=== PATIENT | female | born 1965 | race Caucasian/White ===

== ENCOUNTER 2024-07-11 15:52 | Inpatient (IN) | payer MEDICAID, OTHER ==
[~2024-07-11] VITALS: Ht 162.6 cm; Wt 81.8 kg
[2024-07-11 16:44] LABS: HEMATOCRIT 41.8 % (36.0-47.0); MEAN CORPUSCULAR HEMOGLOBIN 29.4 pg (27.0-33.0); MEAN CORPUSCULAR HGB CONC 33.5 g/dl (32.0-36.5); MEAN CORPUSCULAR VOLUME 87.8 fl (80.0-96.0); PLATELET COUNT, AUTOMATED 306 10^3/uL (150-450); RED BLOOD COUNT 4.76 10^6/uL (4.00-5.40); WHITE BLOOD COUNT 6.1 10^3/uL (4.0-10.0)
[2024-07-11 17:04] LABS: AMPHETAMINES LEVEL URINE NEGATIVE (NEGATIVE); BARBITURATES URINE NEGATIVE (NEGATIVE); BENZODIAZEPINES URINE NEGATIVE (NEGATIVE); CANNABINOIDS URINE NEGATIVE (NEGATIVE); COCAINE METABOLITE URINE NEGATIVE (NEGATIVE); METHADONE URINE NEGATIVE (NEGATIVE); OPIATES URINE NEGATIVE (NEGATIVE); PHENCYCLIDINE URINE NEGATIVE (NEGATIVE)
[2024-07-11 17:06] LABS: ETHYL ALCOHOL (ETHANOL) < 0.003 % (0.000-0.010)
[2024-07-11 17:07] LABS: HCG, SERUM QUALITATIVE NEGATIVE (NEGATIVE); SALICYLATE LEVEL < 3.0 MG/DL (<30)
[2024-07-11 17:08] LABS: ALBUMIN 3.9 G/DL (3.2-5.2); ALKALINE PHOSPHATASE 81 U/L (35-104); ALT/SGPT 47 U/L (7.0-40); AST/SGOT 43 U/L (<34); BILIRUBIN,DIRECT 0.2 MG/DL (<0.4); BILIRUBIN,TOTAL 0.6 MG/DL (0.3-1.2); BLOOD UREA NITROGEN 10 MG/DL (9-23); CALCIUM LEVEL 10.4 MG/DL (8.5-10.1); CARBON DIOXIDE LEVEL 26 MMOL/L (20-31); CHLORIDE LEVEL 103 MMOL/L (98-107); CREATININE FOR GFR 0.67 MG/DL (0.55-1.30); GLOMERULAR FILTRATION RATE > 60.0 (>51); GLUCOSE, FASTING 84 MG/DL (60-100); POTASSIUM SERUM 3.9 MMOL/L (3.5-5.1); SODIUM LEVEL 140 MMOL/L (136-145); TOTAL PROTEIN 7.7 G/DL (5.7-8.2)
[2024-07-11 17:10] LABS: THYROID STIMULATING HORMONE 1.447 uIU/ML (0.55-4.78)
[2024-07-11] MEDS ORDERED: CEPH500C PO (17:12)
[2024-07-11] MEDS ORDERED: POTA-298 PO (17:12)
[2024-07-11] MEDS ORDERED: LEVE250T5 PO (17:12)
[2024-07-11 17:24] LABS: APPEARANCE, URINE HAZY (CLEAR); BACTERIA, URINE AUTO NEGATIVE (NEGATIVE); BILIRUBIN, URINE AUTO NEGATIVE (NEGATIVE); BLOOD, URINE BLOOD 1+ (NEGATIVE); COLOR, URINE YELLOW (YELLOW); GLUCOSE, URINE (UA) AUTO NEGATIVE (NEGATIVE); KETONE, URINE AUTO 1+ mg/dL (NEGATIVE); LEUKOCYTE ESTERASE, URINE AUTO 2+ (NEGATIVE); MUCUS, URINE SMALL (NEGATIVE); NITRITE, URINE AUTO NEGATIVE (NEGATIVE); PROTEIN, URINE AUTO NEGATIVE (NEGATIVE); RBC, URINE AUTO 3 /HPF (0-3); SPECIFIC GRAVITY URINE AUTO 1.014 (1.002-1.035); SQUAMOUS EPITHELIAL CELL UR AU 4 /HPF (0-6); WBC, URINE AUTO 9 /HPF (0-3)
[2024-07-11] MEDS: LORazepam 1 MG TAB PO STA (18:02)
[2024-07-11] MEDS ORDERED: MOM 30ML SUSPENSION UDC PO PRN (18:55)
[2024-07-11] MEDS ORDERED: HOME MED LIST COMPLETE! XX SCH (18:55)
[2024-07-11] MEDS ORDERED: MAALOX 30 ML SUSP *UDC PO PRN (18:55)
[2024-07-11] MEDS: levETIRAcetam 250MG TABLET (KEPPRA) PO SCH (21:22)
[2024-07-11] MEDS: traZODone 50 MG TAB PO PRN (23:59)
[2024-07-12] MEDS: IBUPROFEN 400MG TAB PO PRN
[2024-07-12 06:28] VITALS: BP 125/74; TEMP 97.6; O2SAT 100
[2024-07-12] MEDS: NICOTINE 14 MG/24 HR TRANSDERMAL TD SCH (09:33)
[2024-07-12 10:43] LABS: TOTAL 25(OH) VITAMIN D 15.2 NG/ML (20.0-100.0)
[2024-07-12] MEDS ORDERED: LORazepam 2 MG TAB PO PRN (11:45)
[2024-07-12] MEDS: THIAMINE 100 MG TAB PO SCH (15:24)
[2024-07-12] MEDS: MULTIVITAMINS/MINERALS THERAP 1 TAB PO SCH (15:25)
[2024-07-12 15:29] VITALS: BP 135/89
[2024-07-12] MEDS: FOLIC ACID 1MG TAB PO SCH (15:29)
[2024-07-12 17:36] VITALS: BP 135/89; TEMP 98.3; O2SAT 100
[2024-07-13] VITALS (7 sets, daily range): BP systolic 110–130; BP diastolic 61–85; TEMP 96.5–97.9; O2SAT 98–99
[2024-07-13] MEDS: VITAMIN D 50,000 UNITS CAPSULE (ERGOCALCIFEROL 1.25MG) PO SCH (08:09)
[2024-07-13] MEDS: ACETAMINOPHEN 325 MG TAB PO PRN (12:51)
[2024-07-14 06:30] VITALS: BP 133/92; TEMP 97.2; O2SAT 100
[2024-07-14 07:23] VITALS: BP 133/92
[2024-07-14] MEDS: BACITRACIN OINTMENT 30GM TUBE TOP SCH (12:52)
[2024-07-14 15:23] VITALS: BP 135/84
[2024-07-14] MEDS: OLANZapine 5 MG TAB PO PRN (15:29)
[2024-07-14 16:09] VITALS: BP 135/84; TEMP 98.7; O2SAT 100
[2024-07-14] MEDS: LORazepam 1 MG TAB PO ONE (16:59)
[2024-07-14] MEDS: OLANZapine 2.5MG TABLET PO SCH (20:37)
[2024-07-15 06:43] VITALS: BP 114/65; TEMP 98.2; O2SAT 100
[2024-07-15 14:39] VITALS: BP 133/73
[2024-07-15 15:03] VITALS: BP 133/73; TEMP 98.1; O2SAT 99
[2024-07-15] MEDS: LORazepam 0.5 MG TAB PO ONE (17:05)
[2024-07-15 22:17] VITALS: BP 126/75
[2024-07-16 06:00] VITALS: BP 143/84; TEMP 97.6; O2SAT 99
[2024-07-16] MEDS: LORazepam 0.5 MG TAB PO SCH (09:15)
[2024-07-16 15:45] VITALS: BP 119/60; TEMP 97.9; O2SAT 99
[2024-07-17 06:50] VITALS: BP 118/64; TEMP 97.8; O2SAT 100
[2024-07-17 15:53] LABS: VITAMIN B6,PYRIDOXAL PHOSPHATE 5.1 ng/mL (2.1-21.7)
[2024-07-17 16:29] VITALS: BP 117/65; TEMP 97.7; O2SAT 99
[2024-07-18 06:33] VITALS: BP 88/52; TEMP 97.3; O2SAT 99
[2024-07-18 19:08] VITALS: BP 132/81; TEMP 97.2; O2SAT 100
[2024-07-19 06:32] VITALS: BP 133/74; TEMP 97.8; O2SAT 98
[2024-07-19 14:38] VITALS: BP 127/79; TEMP 96.9; O2SAT 100
[2024-07-19] MEDS: OLANZapine 2.5MG TABLET PO SCH (15:41)
[2024-07-20 06:30] VITALS: BP 127/79; TEMP 96.9; O2SAT 100
[2024-07-20 16:29] VITALS: BP 138/84; TEMP 96.5; O2SAT 97
[2024-07-21 06:41] VITALS: BP 133/83; TEMP 97.2; O2SAT 100
[2024-07-21] MEDS: diphenhydrAMINE 25MG CAP PO PRN (07:36)
[2024-07-21 15:24] VITALS: BP 145/79; TEMP 97.6; O2SAT 98
[2024-07-22 06:41] VITALS: BP 131/75; TEMP 97.9; O2SAT 99
[2024-07-22] MEDS ORDERED: Multivitamins PO (10:44)
[2024-07-22] MEDS ORDERED: FOLI1TAB11 PO (10:44)
[2024-07-22] MEDS ORDERED: BACI50OI TOP (10:44)
[2024-07-22] MEDS ORDERED: LORazepam PO (10:44)
[2024-07-22] MEDS ORDERED: OLAN2.5T53 PO (10:44)
[2024-07-22] MEDS ORDERED: ERGO500029 PO (10:44)
== END 2024-07-22 16:05 | disposition home or self-care (01) | DRG 751 ==
LOC: M ED 15:52 → M ED INP 18:52 → M PSY 21:43
PROVIDERS: ADMIT Psychiatry & Neurology Neurology; ATTEND Psychiatry & Neurology Psychiatry
DX: F29 Unspecified psychosis not due to a substance or known physiological condition (principal); F17.200 Nicotine dependence, unspecified, uncomplicated; R45.851 Suicidal ideations; G43.909 Migraine, unspecified, not intractable, without status migrainosus; E55.9 Vitamin D deficiency, unspecified; Z81.8 Family history of other mental and behavioral disorders; Z79.899 Other long term (current) drug therapy

== ENCOUNTER 2024-07-25 16:51 | Emergency (ER) | payer OTHER ==
[~2024-07-25] VITALS: Ht 167.6 cm; Wt 90.0 kg
[~2024-07-25 16:51] MED LIST: BACI50OI TOP; CEPH500C PO; ERGO500029 PO; FOLI1TAB11 PO; LEVE250T5 PO; LORazepam PO; Multivitamins PO; OLAN2.5T53 PO; POTA-298 PO
[2024-07-25 17:33] LABS: HEMATOCRIT 41.9 % (36.0-47.0); HEMOGLOBIN 13.6 g/dl (12.0-15.5); MEAN CORPUSCULAR HEMOGLOBIN 29.4 pg (27.0-33.0); MEAN CORPUSCULAR HGB CONC 32.5 g/dl (32.0-36.5); MEAN CORPUSCULAR VOLUME 90.5 fl (80.0-96.0); PLATELET COUNT, AUTOMATED 320 10^3/uL (150-450); RED BLOOD COUNT 4.63 10^6/uL (4.00-5.40); WHITE BLOOD COUNT 8.1 10^3/uL (4.0-10.0)
[2024-07-25 18:02] LABS: ETHYL ALCOHOL (ETHANOL) 0.006 % (0.000-0.010)
[2024-07-25 18:04] LABS: SALICYLATE LEVEL < 3.0 MG/DL (<30)
[2024-07-25 18:05] LABS: ALBUMIN 3.7 G/DL (3.2-5.2); ALKALINE PHOSPHATASE 219 U/L (35-104); ALT/SGPT 287 U/L (7.0-40); AST/SGOT 94 U/L (<34); BILIRUBIN,DIRECT < 0.1 MG/DL (<0.4); BILIRUBIN,TOTAL 0.4 MG/DL (0.3-1.2); BLOOD UREA NITROGEN 16 MG/DL (9-23); CALCIUM LEVEL 10.4 MG/DL (8.5-10.1); CARBON DIOXIDE LEVEL 31 MMOL/L (20-31); CHLORIDE LEVEL 105 MMOL/L (98-107); CREATININE FOR GFR 0.55 MG/DL (0.55-1.30); GLOMERULAR FILTRATION RATE > 60.0 (>51); GLUCOSE, FASTING 71 MG/DL (60-100); POTASSIUM SERUM 4.1 MMOL/L (3.5-5.1); SODIUM LEVEL 142 MMOL/L (136-145); TOTAL PROTEIN 7.6 G/DL (5.7-8.2)
[2024-07-25 18:19] LABS: AMPHETAMINES LEVEL URINE NEGATIVE (NEGATIVE); BARBITURATES URINE NEGATIVE (NEGATIVE); BENZODIAZEPINES URINE NEGATIVE (NEGATIVE); CANNABINOIDS URINE NEGATIVE (NEGATIVE); COCAINE METABOLITE URINE NEGATIVE (NEGATIVE); METHADONE URINE NEGATIVE (NEGATIVE); OPIATES URINE NEGATIVE (NEGATIVE); PHENCYCLIDINE URINE NEGATIVE (NEGATIVE)
[2024-07-25] MEDS ORDERED: BACI500O8 TOP (18:35)
[2024-07-25] MEDS ORDERED: HOME MED LIST COMPLETE! XX SCH (18:40)
[2024-07-25 21:30] VITALS: BP 140/76; TEMP 97.1; O2SAT 99
== END 2024-07-25 21:33 | disposition home or self-care (01) ==
LOC: M ED 16:51
DX: F43.0 Acute stress reaction (principal); F41.9 Anxiety disorder, unspecified; E78.5 Hyperlipidemia, unspecified; F32.A Depression, unspecified; F43.10 Post-traumatic stress disorder, unspecified; G40.909 Epilepsy, unspecified, not intractable, without status epilepticus; Z79.2 Long term (current) use of antibiotics; Z79.899 Other long term (current) drug therapy

== ENCOUNTER 2024-08-14 17:35 | Emergency (ER) | payer OTHER ==
[~2024-08-14] VITALS: Ht 162.6 cm; Wt 90.0 kg
[~2024-08-14 17:35] MED LIST changes: +BACI500O8 TOP
[2024-08-15] MEDS ORDERED: HOME MED LIST COMPLETE! XX SCH (02:00)
[2024-08-15] MEDS: ACETAMINOPHEN 325 MG TAB PO PRN (05:48)
[2024-08-15] MEDS: levETIRAcetam 250MG TABLET (KEPPRA) PO SCH (08:55)
[2024-08-15] MEDS: BACITRACIN OINTMENT 30GM TUBE TOP SCH (09:05)
[2024-08-15 11:18] LABS: HEMATOCRIT 38.7 % (36.0-47.0); HEMOGLOBIN 12.7 g/dl (12.0-15.5); MEAN CORPUSCULAR HEMOGLOBIN 28.9 pg (27.0-33.0); MEAN CORPUSCULAR HGB CONC 32.8 g/dl (32.0-36.5); PLATELET COUNT, AUTOMATED 273 10^3/uL (150-450); WHITE BLOOD COUNT 6.2 10^3/uL (4.0-10.0)
[2024-08-15 12:03] LABS: BLOOD UREA NITROGEN 12 MG/DL (9-23); CALCIUM LEVEL 9.3 MG/DL (8.5-10.1); CARBON DIOXIDE LEVEL 27 MMOL/L (20-31); CHLORIDE LEVEL 107 MMOL/L (98-107); CREATININE FOR GFR 0.59 MG/DL (0.55-1.30); GLOMERULAR FILTRATION RATE > 60.0 (>51); GLUCOSE, FASTING 99 MG/DL (60-100); POTASSIUM SERUM 4.4 MMOL/L (3.5-5.1); SODIUM LEVEL 140 MMOL/L (136-145)
[2024-08-15] MEDS ORDERED: ISOVUE-370 76% 100ML VIAL As Ordered ONE (16:55)
[2024-08-16] MEDS: diphenhydrAMINE 25MG CAP PO ONE (04:06)
[2024-08-16 07:37] VITALS: BP 118/83; TEMP 97.7; O2SAT 99
== END 2024-08-16 12:13 | disposition home or self-care (01) ==
LOC: EDBD 17:35 → M ED 17:35
DX: Z60.8 Other problems related to social environment (principal); F41.9 Anxiety disorder, unspecified; F32.A Depression, unspecified; G40.909 Epilepsy, unspecified, not intractable, without status epilepticus; F17.210 Nicotine dependence, cigarettes, uncomplicated; Z88.8 Allergy status to other drugs, medicaments and biological substances; Z79.2 Long term (current) use of antibiotics; Z79.899 Other long term (current) drug therapy
CPT/HCPCS: 36415; 74170; 80048; 85027; 99284; Q9967

== ENCOUNTER 2024-09-16 07:43 | Inpatient (IN) | payer OTHER ==
[~2024-09-16] VITALS: Ht 162.6 cm; Wt 80.0 kg
[2024-09-16] MEDS ORDERED: HOME MED LIST COMPLETE! XX SCH (14:00)
[2024-09-16] MEDS ORDERED: MOM 30ML SUSPENSION UDC PO PRN (16:40)
[2024-09-16] MEDS ORDERED: IBUPROFEN 400MG TAB PO PRN (16:40)
[2024-09-16] MEDS ORDERED: ACETAMINOPHEN 325 MG TAB PO PRN (16:40)
[2024-09-16] MEDS: traZODone 50 MG TAB PO PRN (20:14)
[2024-09-16] MEDS: levETIRAcetam 250MG TABLET (KEPPRA) PO SCH (20:14)
[2024-09-17 06:37] VITALS: BP 121/66; TEMP 97.8
[2024-09-17] MEDS ORDERED: levETIRAcetam 250MG TABLET (KEPPRA) PO SCH (09:00)
[2024-09-17 10:22] VITALS: O2SAT 99
[2024-09-17] MEDS: MUPIROCIN 2% OINT 22 GM TUBE TOP SCH (11:28)
[2024-09-17 15:40] VITALS: BP 116/73; TEMP 98.2; O2SAT 99
[2024-09-18 06:45] VITALS: BP 119/74; TEMP 96.5; O2SAT 98
[2024-09-18 15:28] VITALS: BP 114/68; TEMP 97.5; O2SAT 98
[2024-09-19] MEDS: MAALOX 30 ML SUSP *UDC PO PRN (04:44)
[2024-09-19 06:38] VITALS: BP 122/64; TEMP 97.8; O2SAT 99
[2024-09-19] MEDS: NICOTINE 21MG/24HR 1 EA TRANSDERMAL TD SCH (09:28)
[2024-09-19 16:00] VITALS: BP 121/77; TEMP 97.7; O2SAT 100
[2024-09-19] MEDS: SERTRALINE HCL 25 MG TABLET PO SCH (17:10)
[2024-09-20 06:46] VITALS: BP 133/61; TEMP 97.4; O2SAT 100
[2024-09-20 15:27] VITALS: BP 148/82; TEMP 97.7; O2SAT 97
[2024-09-21 06:33] VITALS: BP 140/80; TEMP 97; O2SAT 99
[2024-09-21] MEDS: OLANZapine ORAL DISINTEGRATING TAB 5MG PO PRN (06:46)
[2024-09-21] MEDS: SERTRALINE HCL 50 MG TAB PO SCH (08:44)
[2024-09-21 16:49] VITALS: BP 105/54; TEMP 97.9; O2SAT 99
[2024-09-22 06:15] VITALS: BP 144/78; TEMP 97.6; O2SAT 18
[2024-09-22 15:33] VITALS: BP 133/88; TEMP 97.5; O2SAT 98
[2024-09-23 06:38] VITALS: BP 142/72; TEMP 97; O2SAT 98
[2024-09-23] MEDS ORDERED: NICO21PAT TD (09:28)
[2024-09-23] MEDS ORDERED: TRAZ-252 PO (09:28)
[2024-09-23] MEDS ORDERED: HYDR-3363 PO (09:28)
[2024-09-23] MEDS ORDERED: LEVE250T5 PO (09:28)
[2024-09-23] MEDS ORDERED: SERT50TA29 PO (09:28)
[2024-09-23] MEDS ORDERED: ZYPR5TAB31 PO (10:00)
== END 2024-09-23 13:43 | disposition home or self-care (01) | DRG 754 ==
LOC: M ED 07:43 → M ED INP 15:29 → M PSY 16:16
PROVIDERS: ADMIT Psychiatry & Neurology Psychiatry; ATTEND Psychiatry & Neurology Psychiatry
DX: F32.A Depression, unspecified (principal); G40.909 Epilepsy, unspecified, not intractable, without status epilepticus; E55.9 Vitamin D deficiency, unspecified; F17.210 Nicotine dependence, cigarettes, uncomplicated; F41.9 Anxiety disorder, unspecified; F10.20 Alcohol dependence, uncomplicated; Z56.0 Unemployment, unspecified; Z79.899 Other long term (current) drug therapy; Z88.8 Allergy status to other drugs, medicaments and biological substances

== ENCOUNTER 2024-10-05 15:55 | Emergency (ER) | payer MEDICAID, OTHER ==
[~2024-10-05] VITALS: Ht 162.6 cm; Wt 80.0 kg
[~2024-10-05 15:55] MED LIST changes: +HYDR-3363 PO; +NICO21PAT TD; +SERT50TA29 PO; +TRAZ-252 PO; +ZYPR5TAB31 PO
[2024-10-05] MEDS ORDERED: HYDR-3363 PO (17:17)
[2024-10-05] MEDS ORDERED: TRAZ1TAB10 PO (17:17)
[2024-10-05] MEDS ORDERED: SERT50TA29 PO (17:17)
[2024-10-05] MEDS ORDERED: OLAN5ZYD PO (17:17)
[2024-10-05] MEDS ORDERED: HOME MED LIST COMPLETE! XX SCH (17:20)
[2024-10-05] MEDS ORDERED: traZODone 50 MG TAB PO PRN (18:10)
[2024-10-05] MEDS ORDERED: OLANZapine ORAL DISINTEGRATING TAB 5MG PO PRN (18:10)
[2024-10-05] MEDS: levETIRAcetam 250MG TABLET (KEPPRA) PO SCH (21:10)
[2024-10-06] MEDS: SERTRALINE HCL 50 MG TAB PO SCH (08:59)
[2024-10-06 09:46] VITALS: BP 127/84; TEMP 98.6; O2SAT 97
== END 2024-10-06 12:34 | disposition home or self-care (01) ==
LOC: M ED 15:55
DX: F60.3 Borderline personality disorder (principal); G40.909 Epilepsy, unspecified, not intractable, without status epilepticus; F43.10 Post-traumatic stress disorder, unspecified; F17.210 Nicotine dependence, cigarettes, uncomplicated; F10.10 Alcohol abuse, uncomplicated; F19.10 Other psychoactive substance abuse, uncomplicated; Z88.8 Allergy status to other drugs, medicaments and biological substances; Z79.899 Other long term (current) drug therapy

== ENCOUNTER 2024-10-21 19:17 | Inpatient (IN) | payer OTHER ==
[~2024-10-21] VITALS: Ht 162.6 cm; Wt 93.7 kg
[~2024-10-21 19:17] MED LIST changes: +OLAN5ZYD PO; +TRAZ1TAB10 PO
[2024-10-21 20:11] LABS: HEMATOCRIT 36.9 % (36.0-47.0); HEMOGLOBIN 12.5 g/dl (12.0-15.5); MEAN CORPUSCULAR HEMOGLOBIN 28.7 pg (27.0-33.0); MEAN CORPUSCULAR HGB CONC 33.9 g/dl (32.0-36.5); MEAN CORPUSCULAR VOLUME 84.8 fl (80.0-96.0); PLATELET COUNT, AUTOMATED 313 10^3/uL (150-450); RED BLOOD COUNT 4.35 10^6/uL (4.00-5.40); WHITE BLOOD COUNT 9.4 10^3/uL (4.0-10.0)
[2024-10-21 20:33] LABS: ETHYL ALCOHOL (ETHANOL) < 0.003 % (0.000-0.010)
[2024-10-21 20:34] LABS: SALICYLATE LEVEL < 3.0 MG/DL (<30)
[2024-10-21 20:35] LABS: ALBUMIN 3.2 G/DL (3.2-5.2); ALKALINE PHOSPHATASE 96 U/L (35-104); ALT/SGPT 48 U/L (7.0-40); AST/SGOT 28 U/L (<34); BILIRUBIN,DIRECT < 0.1 MG/DL (<0.4); BILIRUBIN,TOTAL 0.2 MG/DL (0.3-1.2); BLOOD UREA NITROGEN 13 MG/DL (9-23); CALCIUM LEVEL 9.4 MG/DL (8.5-10.1); CARBON DIOXIDE LEVEL 28 MMOL/L (20-31); CHLORIDE LEVEL 100 MMOL/L (98-107); CREATININE FOR GFR 0.73 MG/DL (0.55-1.30); GLOMERULAR FILTRATION RATE > 60.0 (>51); GLUCOSE, FASTING 83 MG/DL (60-100); HCG, SERUM QUALITATIVE NEGATIVE (NEGATIVE); POTASSIUM SERUM 4.1 MMOL/L (3.5-5.1); SODIUM LEVEL 136 MMOL/L (136-145); THYROID STIMULATING HORMONE 1.731 uIU/ML (0.55-4.78); TOTAL PROTEIN 6.8 G/DL (5.7-8.2)
[2024-10-21] MEDS ORDERED: MIRT-10 PO (20:47)
[2024-10-21] MEDS ORDERED: QUET50TA4 PO (20:47)
[2024-10-21] MEDS ORDERED: HYDR50TA70 PO (20:47)
[2024-10-21] MEDS ORDERED: HOME MED LIST COMPLETE! XX SCH (20:50)
[2024-10-21 22:11] LABS: KETONE, URINE AUTO RFX NEGATIVE (NEGATIVE); LEUKOCYTE ESTERASE UR AUTO RFX 3+ (NEGATIVE); MUCUS, URINE RFX SMALL (NEGATIVE); NITRITE, URINE AUTO RFX NEGATIVE (NEGATIVE); RBC, URINE AUTO RFX 3 /HPF (0-3); SQUAM EPITHELIAL CELL UR AURFX 4 /HPF (0-6); WBC, URINE AUTO RFX 15 /HPF (0-3)
[2024-10-21 22:32] LABS: AMPHETAMINES LEVEL URINE NEGATIVE (NEGATIVE); BARBITURATES URINE NEGATIVE (NEGATIVE); COCAINE METABOLITE URINE NEGATIVE (NEGATIVE)
[2024-10-21 22:33] LABS: BENZODIAZEPINES URINE POSITIVE (NEGATIVE); CANNABINOIDS URINE NEGATIVE (NEGATIVE); METHADONE URINE NEGATIVE (NEGATIVE); OPIATES URINE NEGATIVE (NEGATIVE); PHENCYCLIDINE URINE NEGATIVE (NEGATIVE)
[2024-10-21] MEDS: NITROFURANTOIN (MACROBID) 100 MG CAP PO ONE (22:43)
[2024-10-22] MEDS ORDERED: traZODone 50 MG TAB PO PRN (01:25)
[2024-10-22] MEDS ORDERED: MAALOX 30 ML SUSP *UDC PO PRN (01:25)
[2024-10-22] MEDS ORDERED: diphenhydrAMINE 25MG CAP PO PRN (01:25)
[2024-10-22] MEDS ORDERED: IBUPROFEN 400MG TAB PO PRN (01:25)
[2024-10-22] MEDS ORDERED: MOM 30ML SUSPENSION UDC PO PRN (01:25)
[2024-10-22 02:13] VITALS: BP 137/84; TEMP 98; O2SAT 99
[2024-10-22 07:08] VITALS: BP 133/65; TEMP 97.1; O2SAT 100
[2024-10-22] MEDS: levETIRAcetam 250MG TABLET (KEPPRA) PO SCH (09:01)
[2024-10-22] MEDS: CEFDINIR 300 MG CAP (OMNICEF) PO SCH (10:02)
[2024-10-22] MEDS: SERTRALINE HCL 50 MG TAB PO SCH (15:28)
[2024-10-22 15:47] VITALS: BP 117/60; TEMP 97.9; O2SAT 99
[2024-10-22] MEDS: traZODone 50 MG TAB PO SCH (20:31)
[2024-10-22] MEDS: OLANZapine 5 MG TAB PO SCH (20:33)
[2024-10-22] MEDS: NICOTINE POLACRILEX 2 MG GUM PO PRN (20:33)
[2024-10-23 07:05] VITALS: BP 146/77; TEMP 97.5; O2SAT 100
[2024-10-23 15:24] VITALS: BP 127/65; TEMP 97.6; O2SAT 100
[2024-10-24 06:34] VITALS: BP 122/71; TEMP 96.9; O2SAT 98
[2024-10-24 15:25] VITALS: BP 147/66; TEMP 97.1
[2024-10-25 06:49] VITALS: BP 160/85; TEMP 97; O2SAT 100
[2024-10-25] MEDS: ACETAMINOPHEN 325 MG TAB PO PRN (10:18)
[2024-10-25 12:40] VITALS: BP 146/67; TEMP 97.6; O2SAT 100
[2024-10-25 16:06] VITALS: BP 137/76; TEMP 97.5; O2SAT 99
[2024-10-26 06:16] VITALS: BP 138/78; TEMP 98; O2SAT 98
[2024-10-26 08:00] VITALS: BP 139/72; TEMP 96.7; O2SAT 99
[2024-10-26] MEDS ORDERED: TRAZ-252 PO (10:45)
[2024-10-26] MEDS ORDERED: SERT50TA29 PO (10:45)
== END 2024-10-26 13:25 | disposition home or self-care (01) | DRG 751 ==
LOC: EDBD 19:17 → M ED 19:17 → M ED INP 10-22 01:22 → M PSY 10-22 01:55
PROVIDERS: ADMIT Psychiatry & Neurology Neurology; ATTEND Psychiatry & Neurology Psychiatry
DX: F33.3 Major depressive disorder, recurrent, severe with psychotic symptoms (principal); F41.1 Generalized anxiety disorder; Z91.148 Patient's other noncompliance with medication regimen for other reason; Z91.51 Personal history of suicidal behavior; Z79.899 Other long term (current) drug therapy; Z88.8 Allergy status to other drugs, medicaments and biological substances; F17.200 Nicotine dependence, unspecified, uncomplicated; F41.0 Panic disorder [episodic paroxysmal anxiety]

== ENCOUNTER 2024-11-02 10:21 | Inpatient (IN) | payer MEDICAID, OTHER ==
[~2024-11-02] VITALS: Ht 162.6 cm; Wt 118.1 kg
[~2024-11-02 10:21] MED LIST changes: +HYDR50TA70 PO; +MIRT-10 PO; +QUET50TA4 PO
[2024-11-02] MEDS: ONDANSETRON 4MG ORAL DISINTEGRATING TAB PO ONE (10:35)
[2024-11-02 11:09] LABS: PLATELET COUNT, AUTOMATED 305 10^3/uL (150-450)
[2024-11-02 11:19] LABS: ETHYL ALCOHOL (ETHANOL) < 0.003 % (0.000-0.010)
[2024-11-02 11:21] LABS: ALT/SGPT 79 U/L (7.0-40); AST/SGOT 41 U/L (<34); CALCIUM LEVEL 9.0 MG/DL (8.5-10.1); CARBON DIOXIDE LEVEL 29 MMOL/L (20-31); CHLORIDE LEVEL 106 MMOL/L (98-107); CREATININE FOR GFR 0.60 MG/DL (0.55-1.30); GLOMERULAR FILTRATION RATE > 90.0 (>51); POTASSIUM SERUM 3.9 MMOL/L (3.5-5.1); SALICYLATE LEVEL < 3.0 MG/DL (<30); SODIUM LEVEL 142 MMOL/L (136-145)
[2024-11-02 12:45] LABS: AMPHETAMINES LEVEL URINE NEGATIVE (NEGATIVE); CANNABINOIDS URINE NEGATIVE (NEGATIVE); METHADONE URINE NEGATIVE (NEGATIVE); OPIATES URINE NEGATIVE (NEGATIVE); PHENCYCLIDINE URINE NEGATIVE (NEGATIVE)
[2024-11-02 12:46] LABS: BARBITURATES URINE NEGATIVE (NEGATIVE); COCAINE METABOLITE URINE NEGATIVE (NEGATIVE)
[2024-11-02 12:54] LABS: BENZODIAZEPINES URINE POSITIVE (NEGATIVE)
[2024-11-02] MEDS ORDERED: TRAZ1TAB11 PO (14:06)
[2024-11-02] MEDS ORDERED: ZOLO50TA PO (14:06)
[2024-11-02] MEDS ORDERED: HOME MED LIST COMPLETE! XX SCH (14:10)
[2024-11-02] MEDS: NICOTINE 14 MG/24 HR TRANSDERMAL TD SCH (18:11)
[2024-11-02] MEDS: traZODone 50 MG TAB PO SCH (20:47)
[2024-11-03] MEDS: SERTRALINE HCL 50 MG TAB PO SCH (08:32)
[2024-11-03] MEDS: ENOXAPARIN 30 MG/0.3 ML SYRINGE (J1650 PER 10MG) SC SCH (08:33)
[2024-11-04 15:12] VITALS: BP 113/67; TEMP 98.2; O2SAT 99
[2024-11-04] MEDS: ONDANSETRON 4MG ORAL DISINTEGRATING TAB PO PRN (16:36)
[2024-11-05 03:10] VITALS: BP 110/66; TEMP 98.6; O2SAT 96
[2024-11-05] MEDS: ENOXAPARIN 40 MG/0.4 ML SYRINGE (J1650 PER 10MG) SC SCH (08:54)
[2024-11-06 05:30] VITALS: BP 110/67; TEMP 97.3; O2SAT 98
[2024-11-07 04:55] VITALS: BP 112/62; TEMP 98; O2SAT 98
[2024-11-08 04:44] VITALS: BP 124/74; TEMP 97.3; O2SAT 94
[2024-11-08] MEDS: SENNOSIDES/DOCUSATE SODIUM 8.6 MG/50MG TAB PO SCH (09:01)
[2024-11-08] MEDS: MIRALAX *UNIT DOSE* 17 GM PACKET PO SCH (09:02)
[2024-11-08] MEDS: ACETAMINOPHEN 325 MG TAB PO PRN (11:40)
[2024-11-08 16:00] VITALS: BP 131/65; TEMP 98.1; O2SAT 96
[2024-11-09 05:33] VITALS: BP 106/63; TEMP 98.1; O2SAT 97
[2024-11-10 04:30] VITALS: BP 122/76; TEMP 98.2; O2SAT 98
[2024-11-10] MEDS: SERTRALINE 100 MG TAB PO SCH (09:54)
[2024-11-11 04:33] VITALS: BP 129/79; TEMP 97.9; O2SAT 98
[2024-11-11] MEDS: ALPRAZolam 0.5 MG TAB PO ONE (12:53)
[2024-11-12 04:00] VITALS: BP 107/64; TEMP 97.7; O2SAT 96
[2024-11-12] MEDS: ALPRAZolam 0.5 MG TAB PO PRN (08:20)
[2024-11-13 03:26] VITALS: BP 96/55; TEMP 97.5; O2SAT 93
[2024-11-13 06:17] VITALS: BP 106/60
[2024-11-14 04:10] VITALS: BP 114/65; TEMP 98.1; O2SAT 95
[2024-11-15 03:51] VITALS: BP 128/71; TEMP 97.7; O2SAT 97
[2024-11-15 04:00] VITALS: BP 128/71; TEMP 97.7; O2SAT 97
[2024-11-16 03:35] VITALS: BP 103/59; TEMP 97.5; O2SAT 96
[2024-11-16 04:00] VITALS: BP 103/59; TEMP 97.5; O2SAT 96
[2024-11-17 04:00] VITALS: BP_SYST 112; BP_SYST 115; BP_DIAS 62; BP_DIAS 68; TEMP 97.7; O2SAT 95; O2SAT 98
[2024-11-18 05:41] VITALS: BP 115/65; TEMP 98.1; O2SAT 98
[2024-11-18] MEDS: BISACODYL 10 MG SUPP PR ONE (16:52)
[2024-11-18] MEDS: MIRALAX *UNIT DOSE* 17 GM PACKET PO SCH (20:14)
[2024-11-18] MEDS: FLEET ENEMA PR PRN (20:14)
[2024-11-18] MEDS: SENNA 8.6 MG TAB PO SCH (20:14)
[2024-11-19 04:00] VITALS: BP 100/62; TEMP 97.7; O2SAT 94
[2024-11-19] MEDS ORDERED: BISACODYL 10 MG SUPP PR PRN (13:20)
[2024-11-20 04:00] VITALS: BP 104/61; TEMP 98.1; O2SAT 96
[2024-11-21 03:17] VITALS: BP 105/62; TEMP 97.9; O2SAT 96
[2024-11-22 05:47] VITALS: BP 96/62; TEMP 97.7; O2SAT 93
[2024-11-23 05:30] VITALS: BP 103/63; TEMP 97.9; O2SAT 95
[2024-11-23 17:29] VITALS: BP 138/70
[2024-11-24 06:18] VITALS: BP 96/59; TEMP 98.2; O2SAT 97
[2024-11-25 04:00] VITALS: BP 98/60; TEMP 97.7; O2SAT 94
[2024-11-26 04:23] VITALS: BP 110/64; TEMP 97.7; O2SAT 93
[2024-11-26 16:11] LABS: PLATELET COUNT, AUTOMATED 292 10^3/uL (150-450)
[2024-11-26] MEDS: DIVALPROEX 250 MG *ER* TAB PO SCH (16:28)
[2024-11-26 16:36] LABS: CALCIUM LEVEL 9.3 MG/DL (8.5-10.1); CARBON DIOXIDE LEVEL 28 MMOL/L (20-31); CHLORIDE LEVEL 103 MMOL/L (98-107); CREATININE FOR GFR 0.67 MG/DL (0.55-1.30); GLOMERULAR FILTRATION RATE > 90.0 (>51); POTASSIUM SERUM 4.0 MMOL/L (3.5-5.1); SODIUM LEVEL 139 MMOL/L (136-145)
[2024-11-27 04:33] VITALS: BP 114/65; TEMP 98.2; O2SAT 95
[2024-11-28 04:40] VITALS: BP 112/65; TEMP 98.7; O2SAT 94
[2024-11-29 03:40] VITALS: BP 115/67; TEMP 98.1; O2SAT 95
[2024-11-29] MEDS: MIRALAX *UNIT DOSE* 17 GM PACKET PO PRN (13:25)
[2024-11-30 06:33] VITALS: BP 127/82; TEMP 97.9; O2SAT 96
[2024-12-01 04:00] VITALS: BP 115/69; TEMP 97.9; O2SAT 94
[2024-12-01 20:00] VITALS: BP 113/72; TEMP 98.1; O2SAT 94
[2024-12-02 04:00] VITALS: BP 113/68; TEMP 98.1; O2SAT 97
[2024-12-03 04:00] VITALS: BP 115/69; TEMP 97.9; O2SAT 97
[2024-12-03] MEDS: RAMELTEON 8 MG TAB PO SCH (20:34)
[2024-12-04 04:00] VITALS: BP 113/66; TEMP 97.9; O2SAT 98
[2024-12-04] MEDS: SCOPOLAMINE 1MG TRANSDERMAL PATCH TOP ONE (14:08)
[2024-12-04] MEDS: METAMUCIL PACKET PO SCH (14:08)
[2024-12-04] MEDS: traZODone 100 MG TAB PO SCH (22:17)
[2024-12-05 06:15] VITALS: BP 108/64; TEMP 98.1; O2SAT 97
[2024-12-05] MEDS: MIRALAX *UNIT DOSE* 17 GM PACKET PO SCH (08:00)
[2024-12-05] MEDS: SENNA 8.6 MG TAB PO PRN (21:03)
[2024-12-07 04:53] VITALS: BP 111/63; TEMP 97.7; O2SAT 97
[2024-12-07 17:05] VITALS: BP 109/63; TEMP 97.9; O2SAT 96
[2024-12-08 04:13] VITALS: BP 115/59; TEMP 97.8; O2SAT 99
[2024-12-09] MEDS ORDERED: MAALOX 30 ML SUSP *UDC PO PRN (03:55)
[2024-12-09 04:00] VITALS: BP 107/62; TEMP 98.1; O2SAT 94
[2024-12-10 05:14] VITALS: BP 105/57; TEMP 98.4; O2SAT 94
[2024-12-10 20:02] VITALS: BP 108/67; TEMP 97.9; O2SAT 94
[2024-12-11 07:21] VITALS: BP 104/64; TEMP 97.7; O2SAT 90
[2024-12-11] MEDS: ALPRAZolam 0.25 MG TAB PO PRN (07:46)
[2024-12-14 08:00] VITALS: BP 124/68; TEMP 97.9; O2SAT 98
[2024-12-14] MEDS: ALPRAZolam 0.25 MG TAB PO PRN ×2 (09:19→16:17)
[2024-12-14 20:16] VITALS: BP 138/98; TEMP 97.9; O2SAT 94
[2024-12-15 20:06] VITALS: BP 113/67; TEMP 97.9; O2SAT 99
[2024-12-15] MEDS: OLANZapine 5 MG TAB PO SCH (21:03)
[2024-12-16 08:00] VITALS: BP 98/53; TEMP 98.1; O2SAT 97
[2024-12-17 04:00] VITALS: BP 110/74; TEMP 97.7; O2SAT 97
[2024-12-18 03:29] VITALS: BP 121/66; TEMP 97.9; O2SAT 94
[2024-12-19] VITALS (9 sets, daily range): BP systolic 101–144; BP diastolic 4–83; TEMP 96.9–98.1; O2SAT 93–100
[2024-12-19] MEDS: MINI IV STA (04:25)
[2024-12-19] MEDS: LEVETIRACETAM IV STA (04:25)
[2024-12-19] MEDS: DEXTROSE 5% IV STA (04:25)
[2024-12-19 04:53] LABS: BASO # 0.1 10^3/uL (0.0-0.2); BASO % 1.2 % (0.0-1.0); EOS # 0.2 10^3/uL (0.0-0.5); EOS % 2.6 % (0.0-3.0); LYMPH # 2.7 10^3/uL (1.5-5.0); LYMPH % 46.7 % (24.0-44.0); MONO # 0.7 10^3/uL (0.0-0.8); MONO % 12.2 % (2.0-8.0); NEUTROPHILS # 2.1 10^3/uL (1.5-8.5); NEUTROPHILS % 37.1 % (36.0-66.0); PLATELET COUNT, AUTOMATED 226 10^3/uL (150-450)
[2024-12-19 05:22] LABS: ALT/SGPT 51 U/L (7.0-40); AST/SGOT 28 U/L (<34); CALCIUM LEVEL 9.4 MG/DL (8.5-10.1); CARBON DIOXIDE LEVEL 25 MMOL/L (20-31); CHLORIDE LEVEL 103 MMOL/L (98-107); CREATININE FOR GFR 0.65 MG/DL (0.55-1.30); GLOMERULAR FILTRATION RATE > 90.0 (>51); MAGNESIUM LEVEL 2.3 MG/DL (1.8-2.4); POTASSIUM SERUM 4.4 MMOL/L (3.5-5.1); SODIUM LEVEL 142 MMOL/L (136-145)
[2024-12-19 05:47] LABS: INR 0.96
[2024-12-19] MEDS: DIVALPROEX 500 MG *ER* TAB PO SCH (09:00)
[2024-12-20] VITALS (7 sets, daily range): BP systolic 102–128; BP diastolic 59–71; TEMP 97.4–98.3; O2SAT 92–100
[2024-12-21 04:15] VITALS: BP 103/59; TEMP 97.4; O2SAT 93
[2024-12-21 08:06] VITALS: BP 119/69; TEMP 97.8; O2SAT 97
[2024-12-21 19:45] VITALS: BP 107/59; TEMP 97.5; O2SAT 97
[2024-12-21] MEDS: ALPRAZolam 0.25 MG TAB PO SCH (20:09)
[2024-12-22 02:15] VITALS: BP 107/70; TEMP 97.7; O2SAT 95
[2024-12-22 22:47] LABS: BASO # 0.1 10^3/uL (0.0-0.2); BASO % 1.2 % (0.0-1.0); EOS # 0.2 10^3/uL (0.0-0.5); EOS % 4.1 % (0.0-3.0); LYMPH # 2.0 10^3/uL (1.5-5.0); LYMPH % 40.0 % (24.0-44.0); MONO # 0.5 10^3/uL (0.0-0.8); MONO % 10.4 % (2.0-8.0); NEUTROPHILS # 2.2 10^3/uL (1.5-8.5); NEUTROPHILS % 44.1 % (36.0-66.0); PLATELET COUNT, AUTOMATED 227 10^3/uL (150-450)
[2024-12-22 23:02] LABS: CK-MB VALUE MASS < 1.0 NG/ML (<3.6)
[2024-12-22 23:05] LABS: ALT/SGPT 56 U/L (7.0-40); AST/SGOT 22 U/L (<34); CALCIUM LEVEL 9.0 MG/DL (8.5-10.1); CARBON DIOXIDE LEVEL 29 MMOL/L (20-31); CHLORIDE LEVEL 105 MMOL/L (98-107); CPK CREATINE PHOSPHOKINASE 45 U/L (34-145); CREATININE FOR GFR 0.50 MG/DL (0.55-1.30); GLOMERULAR FILTRATION RATE > 90.0 (>51); MAGNESIUM LEVEL 2.1 MG/DL (1.8-2.4); MB/CK RELATIVE INDEX 2.22 (< OR =4); POTASSIUM SERUM 4.2 MMOL/L (3.5-5.1); SODIUM LEVEL 142 MMOL/L (136-145)
[2024-12-22 23:12] LABS: D-DIMER QUANT 0.51 ug/mL (<0.5); INR 0.93
[2024-12-23 08:29] VITALS: BP 109/69; TEMP 97.7; O2SAT 96
[2024-12-23] MEDS: LORazepam 1 MG TAB PO ONE (12:24)
[2024-12-24 06:08] VITALS: BP 105/75; TEMP 97.5; O2SAT 97
[2024-12-24] MEDS: SERTRALINE HCL 25 MG TABLET PO SCH (08:00)
[2024-12-25 06:51] VITALS: BP 90/53; TEMP 97.7; O2SAT 96
[2024-12-25 07:00] VITALS: BP 96/58
[2024-12-26 08:42] VITALS: BP 101/49; TEMP 97.7; O2SAT 97
[2024-12-26 18:57] VITALS: BP 102/54
[2024-12-27] MEDS: OLANZapine INTRAMUSCULAR 10MG VIAL IM PRN (04:01)
[2024-12-27 08:00] VITALS: BP 124/67; TEMP 97.5; O2SAT 100
[2024-12-28 08:23] VITALS: BP 119/65; TEMP 97.7; O2SAT 99
[2024-12-29 04:01] VITALS: BP 100/50; TEMP 98.1; O2SAT 92
[2024-12-29 04:09] VITALS: BP 115/70; TEMP 97.3; O2SAT 92
[2024-12-30 04:00] VITALS: BP 108/63; TEMP 97.5; O2SAT 97
[2024-12-30] MEDS: QUEtiapine FUMARATE 12.5 MG HALF-TAB PO PRN (18:44)
[2024-12-31 03:10] VITALS: BP 104/66; TEMP 97.5; O2SAT 99
[2025-01-01 02:40] VITALS: BP 139/77; TEMP 97.9; O2SAT 92
[2025-01-01] MEDS: OLANZapine 5 MG TAB PO SCH (20:08)
[2025-01-02 06:02] VITALS: BP 112/54; TEMP 97.9; O2SAT 96
[2025-01-04 06:15] VITALS: BP 108/71; TEMP 97.5; O2SAT 94
[2025-01-05 06:34] VITALS: BP 107/60; TEMP 97.7; O2SAT 99
[2025-01-07] MEDS: SERTRALINE 100 MG TAB PO SCH (08:16)
[2025-01-07] MEDS: SERTRALINE HCL 25 MG TABLET PO SCH (08:16)
[2025-01-07] MEDS: SERTRALINE HCL 50 MG TAB PO ONE (10:24)
[2025-01-07] MEDS: OLANZapine 5 MG TAB PO PRN (12:06)
[2025-01-07 15:36] VITALS: BP 105/65; TEMP 97.7; O2SAT 98
[2025-01-08 05:18] VITALS: BP 104/66; TEMP 98.1; O2SAT 94
[2025-01-08] MEDS: SERTRALINE 100 MG TAB PO SCH (08:05)
[2025-01-09 04:00] VITALS: BP 106/61; TEMP 98.1; O2SAT 96
[2025-01-09] MEDS: OLANZapine ORAL DISINTEGRATING TAB 5MG PO ONE (12:26)
[2025-01-09] MEDS: HALOPERIDOL LACTATE 5 MG/ML VIAL IM STA (13:51)
[2025-01-10 04:00] VITALS: BP 112/72; TEMP 97.9; O2SAT 94
[2025-01-10 21:00] VITALS: BP 112/72; TEMP 97.9; O2SAT 94
[2025-01-11 04:00] VITALS: BP_SYST 112; BP_SYST 96; BP_DIAS 53; BP_DIAS 72; TEMP 97.9; O2SAT 94
[2025-01-12 06:12] VITALS: BP 100/64; TEMP 97.7; O2SAT 94
[2025-01-13 06:28] VITALS: BP 113/67; TEMP 97.7; O2SAT 96
[2025-01-14 03:04] VITALS: BP 105/70; TEMP 98.1; O2SAT 94
[2025-01-15 06:00] VITALS: BP 101/69; TEMP 97.5; O2SAT 98
[2025-01-15] MEDS: ACETAMINOPHEN 325 MG TAB PO ONE (14:10)
[2025-01-16 06:38] VITALS: BP 100/53; TEMP 97.7; O2SAT 92
[2025-01-17 04:32] VITALS: BP 98/54; TEMP 97.5; O2SAT 97
[2025-01-18 04:45] VITALS: BP 104/52; TEMP 97.7; O2SAT 96
[2025-01-19 05:56] VITALS: BP 114/59; TEMP 97.2; O2SAT 97
[2025-01-19] MEDS: IBUPROFEN 400 MG TAB PO ONE (14:29)
[2025-01-20 04:00] VITALS: BP 99/55; TEMP 97.5; O2SAT 97
[2025-01-21 04:33] VITALS: BP 112/59; TEMP 97.7; O2SAT 97
[2025-01-22 04:48] VITALS: BP 125/61; TEMP 97; O2SAT 98
[2025-01-23 05:15] VITALS: BP 108/64; TEMP 97; O2SAT 100
[2025-01-25 05:33] VITALS: BP 110/73; TEMP 97.7; O2SAT 95
[2025-01-26 04:00] VITALS: BP 110/73; TEMP 97.7; O2SAT 95
[2025-01-27 06:00] VITALS: BP 102/56; TEMP 97.7; O2SAT 97
[2025-01-27 21:00] VITALS: BP 110/68; TEMP 97; O2SAT 97
[2025-01-29] VITALS: BP 115/74; TEMP 97.4; O2SAT 100
[2025-01-29 08:00] VITALS: BP 90/57; TEMP 97.6; O2SAT 98
[2025-01-29 11:44] VITALS: BP 118/72
[2025-01-30 04:46] VITALS: BP 110/68; TEMP 97.7; O2SAT 95
[2025-01-31 05:59] VITALS: BP 125/85; TEMP 97.5; O2SAT 95
[2025-01-31 08:00] VITALS: BP 131/80; TEMP 97.3; O2SAT 97
[2025-02-01 07:14] VITALS: BP 111/61; TEMP 97.5; O2SAT 97
[2025-02-02 07:06] VITALS: BP 110/62; TEMP 97.5; O2SAT 96
[2025-02-03 04:06] VITALS: BP 105/54; TEMP 97.7; O2SAT 96
[2025-02-04 06:00] VITALS: BP 107/51; TEMP 97.9; O2SAT 96
[2025-02-05 06:00] VITALS: BP 104/53; TEMP 97.7; O2SAT 94
[2025-02-06 04:00] VITALS: BP 99/55; TEMP 97.9
[2025-02-06 08:12] VITALS: BP 102/58
[2025-02-07 06:36] VITALS: BP 119/73; TEMP 97.5; O2SAT 96
[2025-02-08 06:25] VITALS: BP 112/68; TEMP 97.7; O2SAT 93
[2025-02-09 06:14] VITALS: BP 107/71; TEMP 97.9; O2SAT 97
[2025-02-10 06:00] VITALS: BP 108/60; TEMP 97.9; O2SAT 98
[2025-02-11 06:07] VITALS: BP 110/63; TEMP 97.5; O2SAT 98
[2025-02-12 05:50] VITALS: BP 110/64; TEMP 97.7; O2SAT 98
[2025-02-13 06:27] VITALS: BP 108/59; TEMP 97.7; O2SAT 97
[2025-02-13] MEDS: ANALGESIC BALM CRM 3 OZ TOP SCH (14:30)
[2025-02-14 06:27] VITALS: BP 108/63; TEMP 98.1; O2SAT 98
[2025-02-15 06:11] VITALS: BP 123/74; TEMP 97.3; O2SAT 95
[2025-02-16 05:36] VITALS: BP 115/71; TEMP 97.9; O2SAT 94
[2025-02-17 06:08] VITALS: BP 107/52; TEMP 97.9; O2SAT 96
[2025-02-17 21:11] VITALS: BP 103/62; TEMP 97.4
[2025-02-18 04:53] VITALS: BP 106/61; TEMP 97.7; O2SAT 94
[2025-02-18 08:00] VITALS: BP 121/64; TEMP 98.6; O2SAT 98
[2025-02-19 16:05] VITALS: BP 100/63; TEMP 96.8; O2SAT 98
[2025-02-20 04:00] VITALS: BP 108/62; TEMP 97.5; O2SAT 97
[2025-02-20 21:00] VITALS: BP 138/76; TEMP 97.9; O2SAT 98
[2025-02-21 04:42] VITALS: TEMP 97.7; O2SAT 99
[2025-02-21] MEDS: NICOTINE 7 MG/24 HR TRANSDERMAL TD SCH (08:15)
[2025-02-21] MEDS: RIVAROXABAN 10MG TAB PO SCH (17:31)
[2025-02-21 21:00] VITALS: BP 96/47
[2025-02-22 04:52] VITALS: BP 110/53; TEMP 97.7; O2SAT 95
[2025-02-22 19:52] VITALS: BP 108/61; TEMP 97.7; O2SAT 93
[2025-02-24 05:53] VITALS: BP 103/60; TEMP 97.7; O2SAT 95
[2025-02-25 06:08] VITALS: BP 105/53; TEMP 97.7; O2SAT 94
[2025-02-26 05:09] VITALS: BP 103/52; TEMP 97.5; O2SAT 92
[2025-02-26 12:00] VITALS: TEMP 97.9
[2025-02-27 05:15] VITALS: BP 125/60; TEMP 97.7
[2025-02-28 06:42] VITALS: BP 126/63; TEMP 97; O2SAT 94
[2025-03-01 06:52] VITALS: BP 114/63; TEMP 97.5; O2SAT 93
[2025-03-03 03:37] VITALS: BP 96/56; TEMP 97.3; O2SAT 94
[2025-03-04 06:15] VITALS: BP 135/73; TEMP 97.7; O2SAT 96
[2025-03-05 05:46] VITALS: BP 105/56; TEMP 97.3; O2SAT 96
[2025-03-06 05:20] VITALS: BP 125/64; TEMP 97.4; O2SAT 95
[2025-03-06 08:54] LABS: BASO # 0.1 10^3/uL (0.0-0.2); BASO % 1.7 % (0.0-1.0); EOS # 0.2 10^3/uL (0.0-0.5); EOS % 5.8 % (0.0-3.0); LYMPH # 1.7 10^3/uL (1.5-5.0); LYMPH % 40.4 % (24.0-44.0); MONO # 0.5 10^3/uL (0.0-0.8); MONO % 11.4 % (2.0-8.0); NEUTROPHILS # 1.7 10^3/uL (1.5-8.5); NEUTROPHILS % 40.2 % (36.0-66.0); PLATELET COUNT, AUTOMATED 224 10^3/uL (150-450)
[2025-03-06 09:09] LABS: CALCIUM LEVEL 8.9 MG/DL (8.5-10.1); CARBON DIOXIDE LEVEL 29 MMOL/L (20-31); CHLORIDE LEVEL 101 MMOL/L (98-107); CREATININE FOR GFR 0.63 MG/DL (0.55-1.30); GLOMERULAR FILTRATION RATE > 90.0 (>51); POTASSIUM SERUM 4.3 MMOL/L (3.5-5.1); SODIUM LEVEL 141 MMOL/L (136-145)
[2025-03-07 06:00] VITALS: BP 130/68; TEMP 97.3; O2SAT 95
[2025-03-08 06:54] VITALS: BP 121/56; TEMP 97.7; O2SAT 96
[2025-03-09 06:00] VITALS: BP 98/58; TEMP 97.3; O2SAT 96
[2025-03-10 06:00] VITALS: BP 102/80; TEMP 97.7; O2SAT 97
[2025-03-11 08:00] VITALS: BP 115/64; TEMP 97.7; O2SAT 97
[2025-03-12 05:30] VITALS: BP 111/55; TEMP 97.5; O2SAT 95
[2025-03-13 08:00] VITALS: BP 120/68; TEMP 97.5; O2SAT 95
[2025-03-14 06:00] VITALS: BP 118/64; TEMP 98.1; O2SAT 94
[2025-03-15 07:15] VITALS: BP 114/66; TEMP 97.3; O2SAT 95
[2025-03-17 15:59] VITALS: BP 109/64; TEMP 97.5; O2SAT 95
[2025-03-19 07:57] VITALS: BP 126/69; TEMP 97.5; O2SAT 95
[2025-03-20 04:48] VITALS: BP 108/54; TEMP 97.9; O2SAT 94
[2025-03-21 04:06] VITALS: BP 106/54; TEMP 97.5; O2SAT 95
[2025-03-22 06:00] VITALS: BP 116/56; TEMP 98.4; O2SAT 96
[2025-03-24 08:00] VITALS: BP 114/57; TEMP 97.7; O2SAT 94
[2025-03-25 07:47] VITALS: BP 114/58; TEMP 97.5; O2SAT 94
[2025-03-26 03:50] VITALS: BP 100/58; TEMP 98.6; O2SAT 96
[2025-03-27 08:00] VITALS: TEMP 97.9; O2SAT 94
[2025-03-29 07:32] VITALS: BP 107/60; TEMP 97.5; O2SAT 95
[2025-03-31 07:00] VITALS: BP 102/63; TEMP 97.9; O2SAT 92
[2025-04-02 04:35] VITALS: BP 106/64; TEMP 97.5; O2SAT 95
[2025-04-03 07:27] VITALS: BP 114/67; TEMP 97.7; O2SAT 96
[2025-04-05 07:13] VITALS: BP 121/74; TEMP 97.7; O2SAT 94
[2025-04-08 06:15] VITALS: BP 118/53; TEMP 97.7; O2SAT 97
[2025-04-09 08:00] VITALS: BP 119/68; TEMP 97.7; O2SAT 97
[2025-04-10] MEDS: LIDOCAINE 5% PATCH TD SCH (13:49)
[2025-04-11 06:34] VITALS: BP 150/82; TEMP 97.9; O2SAT 93
[2025-04-11 07:00] VITALS: BP 108/70
[2025-04-12] MEDS ORDERED: IPRATROPIUM 0.5 MG/ALBUTEROL 2.5 MG INH SOL UD 3 ML NEB PRN (15:00)
[2025-04-12 15:30] VITALS: BP 125/72; TEMP 98; O2SAT 96
[2025-04-12] MEDS: IPRATROPIUM 0.5 MG/ALBUTEROL 2.5 MG INH SOL UD 3 ML NEB ONE (15:37)
[2025-04-12 16:44] LABS: BASO # 0.1 10^3/uL (0.0-0.2); BASO % 1.1 % (0.0-1.0); EOS # 0.2 10^3/uL (0.0-0.5); EOS % 3.6 % (0.0-3.0); LYMPH # 2.2 10^3/uL (1.5-5.0); LYMPH % 39.1 % (24.0-44.0); MONO # 0.7 10^3/uL (0.0-0.8); MONO % 12.0 % (2.0-8.0); NEUTROPHILS # 2.5 10^3/uL (1.5-8.5); NEUTROPHILS % 43.8 % (36.0-66.0); PLATELET COUNT, AUTOMATED 213 10^3/uL (150-450)
[2025-04-12 17:10] LABS: CALCIUM LEVEL 8.7 MG/DL (8.5-10.1); CARBON DIOXIDE LEVEL 29 MMOL/L (20-31); CHLORIDE LEVEL 103 MMOL/L (98-107); CK-MB VALUE MASS < 1.0 NG/ML (<3.6); CPK CREATINE PHOSPHOKINASE 44 U/L (34-145); CREATININE FOR GFR 0.59 MG/DL (0.55-1.30); GLOMERULAR FILTRATION RATE > 90.0 (>51); POTASSIUM SERUM 4.0 MMOL/L (3.5-5.1); SODIUM LEVEL 139 MMOL/L (136-145)
[2025-04-12] MEDS: predniSONE 20 MG TAB PO ONE (17:38)
[2025-04-12] MEDS: MIDODRINE 5 MG TAB PO ONE (17:39)
[2025-04-12] MEDS: FUROSEMIDE 40 MG TAB PO SCH (17:39)
[2025-04-12] MEDS: IPRATROPIUM 0.5 MG/ALBUTEROL 2.5 MG INH SOL UD 3 ML NEB SCH (19:32)
[2025-04-13 05:20] VITALS: BP 115/69; TEMP 97.7; O2SAT 96
[2025-04-13 06:48] LABS: CALCIUM LEVEL 9.5 MG/DL (8.5-10.1); CARBON DIOXIDE LEVEL 26 MMOL/L (20-31); CHLORIDE LEVEL 101 MMOL/L (98-107); CREATININE FOR GFR 0.59 MG/DL (0.55-1.30); GLOMERULAR FILTRATION RATE > 90.0 (>51); MAGNESIUM LEVEL 2.0 MG/DL (1.8-2.4); POTASSIUM SERUM 4.5 MMOL/L (3.5-5.1); SODIUM LEVEL 139 MMOL/L (136-145)
[2025-04-13] MEDS ORDERED: NICOTINE 7 MG/24 HR TRANSDERMAL TD PRN (08:15)
[2025-04-14 08:57] VITALS: BP 132/72
[2025-04-15 05:18] VITALS: BP 98/66; TEMP 97.5; O2SAT 95
[2025-04-16 04:36] VITALS: BP 102/62; TEMP 97.5; O2SAT 96
[2025-04-17 06:05] VITALS: BP 116/66; TEMP 97.9; O2SAT 97
[2025-04-18 12:39] VITALS: BP 129/76; TEMP 97.7; O2SAT 96
[2025-04-19 08:24] VITALS: BP 118/61; TEMP 98.2; O2SAT 97
[2025-04-20] MEDS: MIRALAX *UNIT DOSE* 17 GM PACKET PO PRN (15:25)
[2025-04-21 09:00] VITALS: BP 125/74; TEMP 98.5; O2SAT 97
[2025-04-23 08:16] VITALS: BP 120/68; TEMP 98.1; O2SAT 94
[2025-04-24 06:44] VITALS: BP 120/64; TEMP 97.5; O2SAT 95
[2025-04-25 06:50] VITALS: BP 115/60; TEMP 97.3; O2SAT 94
[2025-04-26 06:46] VITALS: BP 112/60; TEMP 97.7; O2SAT 94
[2025-04-28 09:48] VITALS: BP 118/75; TEMP 97.5; O2SAT 97
[2025-05-01 06:10] VITALS: BP 116/74; TEMP 97.7; O2SAT 92
[2025-05-02 04:19] VITALS: BP 101/61; TEMP 97.3; O2SAT 92
[2025-05-03 09:07] VITALS: BP 122/74; TEMP 97.7; O2SAT 90
[2025-05-06 08:00] VITALS: BP 108/70; TEMP 97.5; O2SAT 95
[2025-05-07 10:01] VITALS: BP 108/58; TEMP 97.3; O2SAT 95
[2025-05-08 06:35] VITALS: BP 107/58; TEMP 97.9; O2SAT 95
[2025-05-09 08:06] VITALS: BP 106/59; TEMP 97.5; O2SAT 94
[2025-05-10 15:05] VITALS: BP 115/60; TEMP 97.9; O2SAT 93
[2025-05-11 12:00] VITALS: BP 138/90; TEMP 97.5; O2SAT 93
[2025-05-13 03:24] VITALS: BP 112/60; TEMP 97.2; O2SAT 94
[2025-05-14 08:28] VITALS: BP 140/87; TEMP 97.7; O2SAT 93
[2025-05-15 14:00] VITALS: BP 106/64; TEMP 97.9; O2SAT 99
[2025-05-15] MEDS ORDERED: ZOLO100T PO (15:43)
[2025-05-15] MEDS ORDERED: BISA10SU PR (15:43)
[2025-05-15] MEDS ORDERED: TRAZ-257 PO (15:43)
[2025-05-15] MEDS ORDERED: DEPA500T2 PO (15:43)
[2025-05-15] MEDS ORDERED: LIDO5TD TD (15:43)
[2025-05-15] MEDS ORDERED: SENN18TA PO (15:43)
[2025-05-15] MEDS ORDERED: ACET32TAB PO (15:43)
[2025-05-15] MEDS ORDERED: QUET1TAB17 PO (15:43)
[2025-05-15] MEDS ORDERED: OLAN1TAB16 PO (15:43)
[2025-05-15] MEDS ORDERED: ONDA-282 PO (15:43)
[2025-05-15] MEDS ORDERED: NICO7PA TD (15:43)
[2025-05-15] MEDS ORDERED: RAME8TAB2 PO (15:43)
[2025-05-16 09:45] VITALS: BP 105/64; TEMP 97.9; O2SAT 99
[2025-05-18 06:01] VITALS: BP 123/69; TEMP 97.9; O2SAT 94
== END 2025-05-18 10:40 | DRG 756 ==
LOC: EDBD 10:21 → EDUNIT# 10:21 → M ED 10:21 → M ED INP 11-04 10:22 → M MSPAV 11-04 15:05 → M PCU 12-19 04:25 → OBSVTOIN 12-19 09:13 → M PCU 12-20 12:32 → M MSPAV 12-22 02:08
PROVIDERS: ADMIT Internal Medicine; ATTEND Internal Medicine
PROC: B246ZZZ Ultrasonography of Right and Left Heart (ICD-10-PCS; principal; 2025-04-12)
DX: F44.5 Conversion disorder with seizures or convulsions (principal); F03.90 Unspecified dementia, unspecified severity, without behavioral disturbance, psychotic disturbance, mood disturbance, and anxiety; F33.1 Major depressive disorder, recurrent, moderate; Z91.148 Patient's other noncompliance with medication regimen for other reason; F41.1 Generalized anxiety disorder; F17.210 Nicotine dependence, cigarettes, uncomplicated; R25.1 Tremor, unspecified; F43.10 Post-traumatic stress disorder, unspecified; K59.00 Constipation, unspecified; I44.0 Atrioventricular block, first degree; G47.00 Insomnia, unspecified; Z76.5 Malingerer [conscious simulation]; Z79.899 Other long term (current) drug therapy; Z88.8 Allergy status to other drugs, medicaments and biological substances; Z74.1 Need for assistance with personal care